=== PATIENT | male | born 1950 | race Caucasian/White ===

== ENCOUNTER 2016-11-28 07:25 | Emergency (ER) | payer MEDICARE, OTHER | END 2016-11-28 08:02 | disposition home or self-care (01) | LOC: FER 07:25 | DX: M79.81 Nontraumatic hematoma of soft tissue (principal); I10 Essential (primary) hypertension; E03.9 Hypothyroidism, unspecified; Z88.8 Allergy status to other drugs, medicaments and biological substances; Z79.82 Long term (current) use of aspirin; Z79.899 Other long term (current) drug therapy | CPT/HCPCS: 99283 ==